=== PATIENT | female | born 2000 | race Hispanic/Latino ===

== ENCOUNTER 2025-10-10 23:17 | Observation (INO) | payer SELFPAY ==
[~2025-10-10 23:17] MED LIST: Iopamidol-370 76% 500 ML MDV (1 ML CHARGE) ONE
[2025-10-10] MEDS ORDERED: Ondansetron PF 4 MG/2 ML Vial ONE (23:50)
[2025-10-11 01:02] LABS: #Basophils 0.05 10x3/uL (0.0-0.2); #Eosinophils 0.09 10x3/uL (0.0-0.7); #Monocytes 1.14 10x3/uL (0.11-0.59); #Neutrophils 18.42 10x3/uL (1.40-6.50); %Basophils 0.2 % (0.0-1.0); %Eosinophils 0.4 % (0.0-10.0); %Lymphocytes 4.7 % (21.0-51.0); %Monocytes 5.5 % (0.0-10.0); %Neutrophils 88.2 % (42.0-75.0); Hematocrit 40.0 % (36.0-47.0); Hemoglobin 13.2 g/dL (12.0-16.0); Mean Corpuscular Hemoglobin 30.7 pg (27.0-31.0); Mean Corpuscular Volume 93.0 fL (78.0-98.0); Platelet Count 338 10x3/uL (130-400); Red Blood Cell (RBC) Count 4.30 mill/uL (4.20-5.40); White Blood Cell (WBC) Count 20.88 10x3/uL (4.8-10.8)
[2025-10-11] MEDS ORDERED: hydrALAZINE 20 MG/ML VIAL SLOW IVP PRN (01:08)
[2025-10-11] MEDS ORDERED: Dextrose 50% Abboject 50 ML SYRINGE SLOW IVP PRN (01:08)
[2025-10-11] MEDS ORDERED: Glucagon 1 MG/ML KIT IM PRN (01:08)
[2025-10-11] MEDS ORDERED: Ondansetron PF 4 MG/2 ML Vial IVP PRN (01:08)
[2025-10-11 01:17] LABS: INR-International Normal Ratio 1.0; Prothrombin Time 13.6 sec (12.0-14.7)
[2025-10-11 01:19] LABS: PTT 22.3 sec (22.9-36.1)
[2025-10-11 01:37] LABS: BHCG - Serum Negative (NEGATIVE); Pregs Control Background? CLEAR/WHITE (CLR/WHITE); Pregs Control Bar Appear? YES (CONTROL BAR)
[2025-10-11 01:43] LABS: ALT (SGPT) 37 U/L (Less than 34); AST (SGOT) 64 U/L (11-34); Albumin 3.8 g/dL (3.1-4.5); Alkaline Phosphatase 94 U/L (40-110); Anion Gap 19 mmol/L (10-20); BUN (Urea Nitrogen) 10 mg/dL (7.0-18.7); Bilirubin, Total 0.2 mg/dL (0.3-1.2); CK (CPK) 321 U/L (29-168); Calc. Creatinine Clearance 0 mL/min (70-130); Calcium 7.9 mg/dL (7.8-10.44); Carbon Dioxide 13 mmol/L (22-29); Chloride 115 mmol/L (98-107); Globulin 3.5 g/dL (2.4-3.5); Glucose 125 mg/dL (70-105); Lipase 23 U/L (8-78); Potassium 3.7 mmol/L (3.5-5.1); Sodium 143 mmol/L (136-145)
[2025-10-11 02:49] VITALS: BMI 22.8
[2025-10-11] MEDS: Methocarbamol 500 MG TAB PO PRN (08:27)
[2025-10-11] MEDS: Acetaminophen 325 MG TAB PO PRN (08:28)
[2025-10-11] MEDS: Enoxaparin 40 MG (0.4 mL) SYRINGE SC SCH (10:30)
[2025-10-11] MEDS: Senokot S 8.6-50 MG TAB PO SCH (10:34)
[2025-10-11 16:32] VITALS: BP 111/74; TEMP 98.6
== END 2025-10-11 20:10 | disposition home or self-care (01) ==
LOC: ERS 23:17 → SURG A 10-11 01:08
PROVIDERS: ADMIT Surgery Trauma Surgery; ATTEND Surgery Trauma Surgery
DX: S32.110A Nondisplaced Zone I fracture of sacrum, initial encounter for closed fracture (principal); S27.0XXA Traumatic pneumothorax, initial encounter; V89.2XXA Person injured in unspecified motor-vehicle accident, traffic, initial encounter
CPT/HCPCS: 36415; 70450; 71045; 71260; 72125; 72170; 74177; 80053; 80307; 82550; 83690; 84703; 85025; 85610; 85730; 86850; 86900; 86901; 90471; 90715; 93005; 94760; 96372; 96374; 96375; 96376; G0378; G0390; J1650; J2270; J2405; J3010; J7120; Q9967